=== PATIENT | male | born 1945 | race Caucasian/White ===

== ENCOUNTER 2018-10-30 11:07 | Observation (INO) ==
[2018-10-30] MEDS ORDERED: ASPIRIN 325 MG TABLET PO STA (11:37)
[2018-10-30 11:53] LABS: Basophils # 0.1 10*3/uL (0.0-0.2); Basophils % 1.1 % (0.0-0.8); Eosinophils # 0.3 10*3/uL (0.0-0.87); Eosinophils % 3.3 % (0.00-10.9); Hemoglobin 14.9 GM/DL (14.0-18.0); Immature Granulocytes % 0.5 %; Immature Granulocytes Absolute 0.04 #; Lymphocytes # 1.4 10*3/uL (1.4-4.0); Lymphocytes % 18.1 % (21.2-54.2); Mean Corpuscular HGB Conc 34.7 GM/DL (32-36); Mean Platelet Volume 9.9 FL (9.6-12.0); Monocytes % 9.1 % (1.7-12.7); Neutrophils % 67.9 % (38.7-73.9); Platelet Count 203 T/CUMM (130-400); Red Blood Count 4.94 MC/CUMM (3.8-5.5); Red Cell Distribution Width 12.5 % (9.3-17.3); White Blood Count 7.6 T/CUMM (4-12)
[2018-10-30 12:03] LABS: INR 0.9; PT Patient Result 10.3 SECS; Partial Thromboplastin Time 24.7 SECS (0-40)
[2018-10-30 12:23] LABS: Alanine Aminotransferase 74 U/L (16-61); Albumin 3.8 G/DL (3.4-5.0); Alkaline Phosphatase 91 U/L (45-117); Aspartate Amino Transferase 38 U/L (0-37); Bilirubin,Total < 0.39 MG/DL (0.2-1.0); Blood Urea Nitrogen 17 MG/DL (7-18); Calcium 8.6 MG/DL (8.5-10.1); Glucose 152 MG/DL (74-106); Osmolality,Calculated 281.5 MOS/KG (273-304); Total Protein 7.4 G/DL (6.4-8.3)
[2018-10-30] MEDS ORDERED: ONDANSETRON 4 MG/2 ML VIAL IV PRN (15:05)
[2018-10-30] MEDS ORDERED: ACETAMINOPHEN 325 MG TABLET PO PRN (15:05)
[2018-10-30] MEDS ORDERED: COLCHICINE 0.6 MG CAPSULE PO PRN (15:08)
[2018-10-30 17:54] LABS: Apearance,Urine CLEAR (Clear); Bilirubin,Urine Negative (Negative); Blood, Urine Negative (Negative); Glucose,Urine (UA) Negative (Negative); Ketones,Urine Negative (Negative); Mucus,Urine Occasional /LPF (Occasional); Nitrite,Urine Negative (Negative); Protein,Urine Negative; RBC,Urine 1 /HPF (0-4); Urine Color Yellow (Yellow); Urine Specific Gravity 1.039 (1.001-1.035); Urine Urobilinogen < 2.0 EU/DL (0.2-1.0); WBC,Urine <1 /HPF (0-6)
[2018-10-31 05:44] LABS: Basophils # 0.1 10*3/uL (0.0-0.2); Basophils % 0.8 % (0.0-0.8); Eosinophils # 0.4 10*3/uL (0.0-0.87); Eosinophils % 4.9 % (0.00-10.9); Hematocrit 41.5 VOL% (42.0-52.0); Hemoglobin 14.1 GM/DL (14.0-18.0); Immature Granulocytes % 0.6 %; Immature Granulocytes Absolute 0.04 #; Lymphocytes # 1.4 10*3/uL (1.4-4.0); Lymphocytes % 19.5 % (21.2-54.2); Mean Corpuscular Volume 88.3 FL (87-102); Mean Platelet Volume 10.1 FL (9.6-12.0); Monocytes % 9.8 % (1.7-12.7); Neutrophils % 64.4 % (38.7-73.9); Platelet Count 197 T/CUMM (130-400); Red Cell Distribution Width 12.8 % (9.3-17.3); White Blood Count 7.1 T/CUMM (4-12)
[2018-10-31 06:07] LABS: Calcium 8.9 MG/DL (8.5-10.1); Osmolality,Calculated 284.3 MOS/KG (273-304); Thyroid Stimulating Hormone 1.94 uIU/ml (0.358-3.74)
[2018-10-31 08:05] VITALS: BP 123/76
[2018-10-31] MEDS: ENOXAPARIN 40 MG/0.4 ML SYRINGE SUBCUT SCH ×2 (08:52→08:54)
[2018-10-31] MEDS ORDERED: PANTOPRAZOLE 40 MG TABLET PO SCH (09:00)
[2018-10-31] MEDS ORDERED: TAMSULOSIN 0.4 MG CAPSULE PO SCH (09:00)
== END 2018-10-31 11:36 | disposition home or self-care (01) ==
LOC: N.EDINP 11:07 → N.ED 11:07 → N.2E 15:55
PROVIDERS: ADMIT Internal Medicine Nephrology; ATTEND Internal Medicine Nephrology